=== PATIENT | female | born 1950 | race Caucasian/White ===

== ENCOUNTER 2016-04-26 17:56 | Emergency (ER) | payer OTHER ==
--- NOTE | 2016-04-26 19:28 | PROVIDER DOCUMENTATION ---
HPI-Musculoskeletal Pain/Inj - GENERAL Chief Complaint: Fall Stated Complaint: @1430 FALL 04/24/16 Time Seen by Provider: 04/26/16 18:33 Source: patient - HX OF PRESENT ILLNESS-MUSKULOSKELTAL Nature of Presenting Problem: 65 y/o WF c/o fall x 3 days. Pt states that she was walking and fell backwards and hit her butt on the floor. Denies any head injury, LOC. States that now she has pain radiating to back and abdomen and to bilat thighs. Denies any numbness/tingling, bowel/bladder dysfunction, inability to ambulate. States her BP has been fluctuating, but denies any dizziness prior to fall. Review of Systems - Adult - REVIEW OF SYSTEMS - ADULT Constitutional: reports: no symptoms reported. denies: chills, fever Eyes: reports: no symptoms reported. denies: blurred vision, double vision Ears, Nose, Mouth & Throat: reports: no symptoms reported. denies: ear pain, nose pain Cardiovascular: reports: no symptoms reported. denies: chest pain, palpitations Respiratory: reports: no symptoms reported. denies: dyspnea on exertion, shortness of breath Gastrointestinal: reports: no symptoms reported. denies: nausea, vomiting Genitourinary: reports: no symptoms reported. denies: dysuria, frequency Musculoskeletal: reports: see HPI, back pain, joint pain. denies: joint swelling, neck pain Integumentary: reports: no symptoms reported. denies: nail changes, rash Neurological: reports: no symptoms reported. denies: numbness, paresthesia Psychiatric: reports: no symptoms reported Endocrine: reports: no symptoms reported. denies: cold intolerance, heat intolerance Hematologic/Lymphatic: reports: no symptoms reported. denies: easy bruising, prolonged bleeding Allergic/Immunologic: reports: no symptoms reported All Other Systems: Reviewed and Negative Past History - Adult - PAST MEDICAL HISTORY-ADULT Review of Records: reports: Nursing Assessment Review, Medications Reviewed - SOCIAL HISTORY Smoking: denies Physical Exam-Injury Related - Physical Exam-Injury Related Initial Vital Signs Reviewed: Yes General Appearance: alert, mild distress Eyes: PERRL/EOMI, pink conjunctivae Head, Ears, Nose, Mouth & Throat: normocephalic/atraumatic, moist mucous membranes Neck: supple, normal inspection. negative: full range of motion, C-spine tenderness Respiratory: lungs clear, normal breath sounds. negative: accessory muscle use , crackles, rales, rhonchi, stridor Cardiovascular: regular rate, rhythm. negative: bradycardia, tachycardia Abdominal Exam: normal bowel sounds, non tender, soft. negative: distended, guarding, rigid Back Exam: normal inspection, no vertebral tenderness, decreased range of motion Extremity: normal gait, normal inspection. negative: abnormal NV exam Integumentary: normal color, warm/dry, blanching Neurologic: negative: aphasia Psych/Mental Status: normal mood/affect, normal thought content, normal thought process, oriented x 3 Progress - XRAY 1 XRAY Study: other (sacrum/coccyx) XRAY Interpretation: No fx 2 XRAY Study: Lumbar Spine XRAY Interpretation: scoliosis, no fx or subluxation 3 XRAY Study: Chest XRAY Interpretation: No abnormality 4 XRAY: Bilateral XRAY Study: Pelvis, Hip XRAY Interpretation: No fx Departure - Departure Time of Disposition Order: 20:43 DIAGNOSIS: Fall Qualifiers: Encounter type: initial encounter Qualified Code(s): W19.XXXA - Unspecified fall, initial encounter Scoliosis Qualifiers: Scoliosis type: idiopathic Idiopathic scoliosis type: other Spinal region: lumbar Qualified Code(s): M41.26 - Other idiopathic scoliosis, lumbar region Disposition: HOME 01 Certified Medical Emergency: Emergent Condition: Stable Additional Instructions: Take medications as directed. Ice and/or heat to the area. Follow up with specialist for further management. ED Follow Up Instructions: You have been treated by a care provider in the Emergency Department. These instructions are being provided to you so you can have an understanding of how to care for yourself upon discharge. Upon discharge from the Emergency Department, you are responsible for making arrangements for follow-up care by a physician of your choice. Take all prescribed medications as directed. Return to the Emergency Department immediately for any new or worsening symptoms. You may call the Physician Referral phone number at [phone] to obtain a list of Physicians who are taking new patients. Prescriptions: Methocarbamol [Robaxin] 500 mg PO BID #30 tablet Referrals: Xiomara Cooley MD [Primary Care Provider] - René Breaux MD [STAFF PHYSICIAN] - Attestation - Physician/ TRESA Attestation Patient care was provided by Advanced Practice Provider:: Yes Advanced Practice Provider:: Lorena Vaughan Advanced Practice Provider documentation review:: The Mid-level provider documentation, treatment plan and medical decision making was reviewed by the physician who agrees with all treatment and medical decision making by the MLP.
[2016-04-26 20:51] VITALS: BP 110/41
--- NOTE | 2016-04-27 09:23 | Diag Imaging Result Document ---
PROCEDURE NAME: LUMBAR SPINE - 04/26/2016 LUMBAR SPINE, 5 VIEWS: FINDINGS: There is minimal curvature of the mid lumbar spine with convexity to the right. The pedicles appear to be intact. There is generalized osteopenia. There are calcifications in the aorta and iliac arteries. There has been no apparent change in the lumbar spine since the previous study of 01/30/2014. There is some anterior osteophyte formation particularly at the L1- 2, L2-3 and L3-4 levels. IMPRESSION: Degenerative disk disease, scoliosis, and osteopenia. Atherosclerosis.
--- NOTE | 2016-04-27 09:24 | Diag Imaging Result Document ---
PROCEDURE NAME: COCCYX/SACRUM - 04/26/2016 COCCYX AND SACRUM, 3 VIEWS: FINDINGS: There is a stimulator device present over the sacrum on the left. There is no evidence of acute fracture or dislocation. There is generalized osteopenia. IMPRESSION: No acute bony disease.
--- NOTE | 2016-04-27 09:28 | Diag Imaging Result Document ---
PROCEDURE NAME: HIP W/PELVIS BILAT 2 VIEWS - 04/26/2016 AP PELVIS AND BILATERAL HIPS, 4 VIEWS: FINDINGS: The joint space on the left is slightly more narrowed than the right. There is no evidence of fracture or dislocation. IMPRESSION: Degenerative arthritis, worse on the left than the right.
--- NOTE | 2016-04-27 09:29 | Diag Imaging Result Document ---
PROCEDURE NAME: CHEST-2 VIEWS - 04/26/2016 TWO VIEWS OF THE CHEST: FINDINGS: There is a granuloma in the mid right lung. There is no evidence of acute cardiac or pulmonary disease and compared to 12/07/2015, there has been no significant change in the appearance of the chest. IMPRESSION: No evidence of acute disease.
== END 2016-04-26 20:59 | disposition home or self-care (01) ==
LOC: ED 17:56
DX: M41.26 Other idiopathic scoliosis, lumbar region (principal); M54.9 Dorsalgia, unspecified; M19.90 Unspecified osteoarthritis, unspecified site; R10.9 Unspecified abdominal pain; M79.652 Pain in left thigh; M79.651 Pain in right thigh; Z79.899 Other long term (current) drug therapy; Z79.82 Long term (current) use of aspirin; Z79.51 Long term (current) use of inhaled steroids; W19.XXXA Unspecified fall, initial encounter
CPT/HCPCS: 71020; 72110; 72220; 73521